=== PATIENT | male | born 1965 | race Caucasian/White ===

== ENCOUNTER → 2016-10-28 | Outpatient (REF) | payer OTHER ==
[~2016-10-28] MED LIST: /CELE20CA OR; /ESOM40CA OR; /PANT40TA OR; ACET50TAOT PO; ASPI1TAB PO; GABA-282 PO; LISI10TA4 OR; LISI10TA4 PO; LISI40TAB PO; METF-699 PO; MULT1CHW26 PO; MULTIVIT OR; NAPR1TAB41 PO; NEXI40CA PO; NORC1TAB4 PO; PERCOCET PO; PRAV40TA2 PO; SENN8.6T7 PO; TYLE325T5 PO; TYLE500T78 PO; VITA1CAP7 PO; VITA500046 PO; VITAMIN D OR; VITMTA PO; XANA0.25 PO; XANA0.5T PO; ZOCO20TA PO; ZOFR4TAB3 PO
[2016-10-29 12:14] LABS: MEAN CORPUSCULAR HEMOGLOBIN 31.6 pg (27.0-33.0); MEAN CORPUSCULAR HGB CONC 35.1 g/dl (32.0-36.5); MEAN CORPUSCULAR VOLUME 89.8 fl (80.0-96.0); RED CELL DISTRIBUTION WIDTH 12.6 % (11.5-14.5); WHITE BLOOD COUNT 5.1 K/mm3 (4.0-10.0)
[2016-10-29 12:17] LABS: ALBUMIN 3.6 GM/DL (3.2-5.2); ALBUMIN/GLOBULIN RATIO 1.29 (1.00-1.93); ALKALINE PHOSPHATASE 30 U/L (45-117); ALT/SGPT 40 U/L (12-78); ANION GAP 8 MEQ/L (8-16); AST/SGOT 18 U/L (15-37); BILIRUBIN,TOTAL 0.5 MG/DL (0.2-1.0); BLOOD UREA NITROGEN 13 MG/DL (7-18); CALCIUM LEVEL 8.6 MG/DL (8.5-10.1); CARBON DIOXIDE LEVEL 26 MEQ/L (21-32); CHLORIDE LEVEL 110 MEQ/L (98-107); CHOLESTEROL LEVEL 128 MG/DL (<200); CREATININE FOR GFR 0.61 MG/DL (0.70-1.30); GLOMERULAR FILTRATION RATE > 60.0 (>56); GLUCOSE, FASTING 92 MG/DL (70-105); POTASSIUM SERUM 4.1 MEQ/L (3.5-5.1); SODIUM LEVEL 144 MEQ/L (136-145); TOTAL PROTEIN 6.4 GM/DL (6.4-8.2); TRIGLYCERIDES LEVEL 138 MG/DL (<150)
[2016-10-29 13:05] LABS: BASOPHILS 2 % (0-4); EOSINOPHILS 5 % (0-5)
== END ==
LOC: M SFHCLERA 17:03
PROVIDERS: ATTEND Family Medicine
DX: I10 Essential (primary) hypertension (principal)

== ENCOUNTER → 2017-11-11 | Outpatient (CLI) | payer OTHER | LOC: M LRY 15:46 | DX: M17.0 Bilateral primary osteoarthritis of knee (principal); M19.041 Primary osteoarthritis, right hand; M19.242 Secondary osteoarthritis, left hand | CPT/HCPCS: 73130; 90471 ==

== ENCOUNTER → 2017-11-27 | Outpatient (REF) | payer OTHER ==
[2017-11-27 11:54] LABS: BASO % 0.8 % (0.0-1.0); EOS # 0.2 10^3/uL (0.0-0.50); HEMATOCRIT 46.1 % (42.0-52.0); IMMATURE GRANULOCYTE % 0.2 % (0-3.0); LYMPH # 1.6 10^3/uL (1.5-4.5); LYMPH % 32.4 % (24.0-44.0); MEAN CORPUSCULAR HEMOGLOBIN 31.3 pg (27.0-33.0); MEAN CORPUSCULAR HGB CONC 34.7 g/dl (32.0-36.5); MEAN CORPUSCULAR VOLUME 90.2 fl (80.0-96.0); MONO # 0.4 10^3/uL (0.0-0.8); MONO % 7.2 % (0.0-5.0); NEUTROPHILS # 2.8 10^3/uL (1.8-7.7); NEUTROPHILS % 56.4 % (36.0-66.0); PLATELET COUNT, AUTOMATED 166 10^3/uL (150-450); RED BLOOD COUNT 5.11 10^6/uL (4.30-6.10); RED CELL DISTRIBUTION WIDTH 12.1 % (11.5-14.5)
[2017-11-27 12:12] LABS: ESTIMATED AVERAGE GLUCOSE 117 MG/DL (60-110); HEMOGLOBIN A1c 5.7 %
[2017-11-27 12:27] LABS: ALBUMIN 3.5 GM/DL (3.2-5.2); ALBUMIN/GLOBULIN RATIO 1.25 (1.00-1.93); ALKALINE PHOSPHATASE 23 U/L (45-117); ALT/SGPT 89 U/L (12-78); ANION GAP 11 MEQ/L (8-16); AST/SGOT 42 U/L (7-37); BILIRUBIN,TOTAL 0.8 MG/DL (0.2-1.0); BLOOD UREA NITROGEN 15 MG/DL (7-18); CALCIUM LEVEL 7.9 MG/DL (8.5-10.1); CARBON DIOXIDE LEVEL 25 MEQ/L (21-32); CHLORIDE LEVEL 105 MEQ/L (98-107); CHOLESTEROL LEVEL 122 MG/DL (<200); CHOLESTEROL RISK RATIO 3.696 (<5); CREATININE FOR GFR 0.62 MG/DL (0.70-1.30); GLOMERULAR FILTRATION RATE > 60.0 (>56); GLUCOSE, FASTING 101 MG/DL (70-100); HDL CHOLESTEROL 33 MG/DL (>40); LDL CHOLESTEROL 64 MG/DL (<100); NON-HDL-C 89 MG/DL; POTASSIUM SERUM 4.4 MEQ/L (3.5-5.1); SODIUM LEVEL 141 MEQ/L (136-145); TOTAL PROTEIN 6.3 GM/DL (6.4-8.2); TRIGLYCERIDES LEVEL 124 MG/DL (<150)
[2017-11-27 12:31] LABS: CREATININE, URINE 93.3 MG/DL; MALB URINE SIEMENS < 5.0 MG/L
[2017-11-27 12:38] LABS: MAU/CREAT RATIO 5.4 MCG/MG (0.0-30.0)
== END ==
LOC: M SFHCLERA 08:04
DX: R52 Pain, unspecified (principal); I10 Essential (primary) hypertension
CPT/HCPCS: 80053

== ENCOUNTER → 2018-01-07 | Outpatient (CLI) | payer OTHER | LOC: M SLEEP 19:30 | DX: G47.33 Obstructive sleep apnea (adult) (pediatric) (principal) | CPT/HCPCS: 95810 ==

== ENCOUNTER → 2018-03-05 | Outpatient (REF) | payer OTHER ==
[~2018-03-05] MED LIST changes: +ACET500T15 PO; -ACET50TAOT PO; -GABA-282 PO; +GABA-843 PO; +LISI40TA PO; +ZOFR4TAB14 PO; -ZOFR4TAB3 PO
[2018-03-05 12:44] LABS: ALBUMIN 3.6 GM/DL (3.2-5.2); ALT/SGPT 177 U/L (12-78); BILIRUBIN,TOTAL 0.9 MG/DL (0.2-1.0); BLOOD UREA NITROGEN 18 MG/DL (7-18); CALCIUM LEVEL 8.1 MG/DL (8.5-10.1); CARBON DIOXIDE LEVEL 28 MEQ/L (21-32); CHLORIDE LEVEL 106 MEQ/L (98-107); CREATININE FOR GFR 0.65 MG/DL (0.70-1.30); FERRITIN 212 NG/ML (26-388); GLOMERULAR FILTRATION RATE > 60.0 (>56); GLUCOSE, FASTING 135 MG/DL (70-100); POTASSIUM SERUM 4.2 MEQ/L (3.5-5.1); SODIUM LEVEL 140 MEQ/L (136-145); TOTAL PROTEIN 6.6 GM/DL (6.4-8.2)
[2018-03-05 12:52] LABS: TESTOSTERONE 170 NG/DL (241-827)
[2018-03-05 13:03] LABS: HEPATITIS B SURFACE ANTIGEN NEGATIVE (NEGATIVE)
[2018-03-05 13:30] LABS: HEPATITIS C VIRUS ABY INDEX 0.1 INDEX (<0.8)
[2018-03-05 13:31] LABS: HEPATITIS B CORE ANTIBODY IGM NEGATIVE (NEGATIVE)
[2018-03-05 13:33] LABS: HEPATITIS A ANTIBODY IGM NEGATIVE (NEGATIVE)
== END ==
LOC: M SFHCLERA 08:30
PROVIDERS: ATTEND Family Medicine
DX: R94.5 Abnormal results of liver function studies (principal); N52.9 Male erectile dysfunction, unspecified

== ENCOUNTER → 2018-03-16 | Outpatient (REF) | payer OTHER ==
[2018-03-16 12:16] LABS: ALBUMIN 3.6 GM/DL (3.2-5.2); ALT/SGPT 106 U/L (12-78); BILIRUBIN,TOTAL 0.7 MG/DL (0.2-1.0); BLOOD UREA NITROGEN 17 MG/DL (7-18); CALCIUM LEVEL 8.3 MG/DL (8.5-10.1); CARBON DIOXIDE LEVEL 26 MEQ/L (21-32); CHLORIDE LEVEL 106 MEQ/L (98-107); CREATININE FOR GFR 0.63 MG/DL (0.70-1.30); FERRITIN 127 NG/ML (26-388); GLOMERULAR FILTRATION RATE > 60.0 (>56); GLUCOSE, FASTING 127 MG/DL (70-100); LUTEINIZING HORMONE 3.8 mIU/mL (1.5-9.3); POTASSIUM SERUM 4.1 MEQ/L (3.5-5.1); SODIUM LEVEL 139 MEQ/L (136-145); TESTOSTERONE 243 NG/DL (241-827); TOTAL PROTEIN 6.2 GM/DL (6.4-8.2)
[2018-03-17 09:51] LABS: HEPATITIS B SURFACE ANTIGEN NEGATIVE (NEGATIVE)
[2018-03-17 10:18] LABS: HEPATITIS B CORE ANTIBODY IGM NEGATIVE (NEGATIVE); HEPATITIS C VIRUS ABY INDEX 0.1 INDEX (<0.8)
[2018-03-17 10:20] LABS: HEPATITIS A ANTIBODY IGM NEGATIVE (NEGATIVE)
== END ==
LOC: M SFHCLERA 08:00
PROVIDERS: ATTEND Family Medicine
DX: R94.5 Abnormal results of liver function studies (principal); R79.89 Other specified abnormal findings of blood chemistry; N52.9 Male erectile dysfunction, unspecified

== ENCOUNTER → 2018-03-19 | Outpatient (CLI) | payer OTHER ==
--- NOTE | 2018-03-19 10:17 | REP ---
RIGHT UPPER QUADRANT ULTRASOUND: Real-time sonographic evaluation of the right upper quadrant performed. The study is limited due to patient body habitus. Gallbladder demonstrates no gross stone. No obvious wall thickening. No free fluid is seen. There is no evidence of intrahepatic or extrahepatic biliary dilatation, common bile duct measuring 4 mm in diameter. Liver demonstrates diffuse heterogeneous increased echotexture compatible with diffuse fibrofatty infiltration. No gross underlying mass is seen. Pancreas is not well seen due to body habitus and overlying bowel gas. Right kidney demonstrates no hydronephrosis with normal size 13.9 cm in length. There is no gross ascites. IMPRESSION: Markedly limited exam. No definite gallstones or biliary dilatation. Diffuse fibrofatty infiltration of the liver. Electronically Signed by Froy Tobar MD 03/19/2018 01:41 P
== END ==
LOC: M LRY 08:13
PROVIDERS: ATTEND Family Medicine
DX: R94.5 Abnormal results of liver function studies (principal)

== ENCOUNTER → 2018-03-23 | Outpatient (REF) | payer OTHER | LOC: M SFHCLERA 08:00 | PROVIDERS: ATTEND Family Medicine | DX: N52.9 Male erectile dysfunction, unspecified (principal) ==

== ENCOUNTER → 2018-04-01 | Outpatient (CLI) | payer OTHER ==
--- NOTE | 2018-04-05 18:19 | SLEEPCENT ---
DATE OF PROCEDURE: 04/01/2018 ORDERED BY: Komal Castanon Nocturnal polysomnography was performed for the titration of pressure therapy in this patient with obstructive sleep apnea syndrome, apnea-hypopnea index 50.1. For testing, a [employer] Simplus full face mask of medium size was used, 5 cm of water pressure were applied to the circuit and the lights were extinguished. 8 hours and 23 minutes of data were reviewed. There were 380 minutes of sleep identified. Sleep latency was short at 6 minutes. Rapid eye movement (REM) latency was short at 29 minutes. Sleep architecture was good with 6 REM cycles and REM rebound noted. Overall sleep efficiency was 84%. The electrocardiogram showed a sinus rhythm with an average heart rate of 58 beats per minute. EEG showed reasonably normal waveforms for awake and sleep. Respiratory events were well palliated with continuous positive airway pressure (CPAP) at a pressure of +12. There was scattered limb activity and occasional snoring. Remaining measures of sleep physiology were normal. IMPRESSION: Obstructive sleep apnea syndrome (G47.33) RECOMMENDATIONS: Nightly use of pressure therapy 12 cm of water.
== END ==
LOC: M SLEEP 19:44
PROVIDERS: ATTEND Nurse Practitioner Family
DX: G47.33 Obstructive sleep apnea (adult) (pediatric) (principal)

== ENCOUNTER → 2018-04-15 | Outpatient (CLI) | payer OTHER ==
[~2018-04-15] MED LIST changes: +GASTROGRAFIN SOLUTION 30ML (Q9963) As Ordered ONE; +ISOVUE-370 76% 100ML VIAL (Q9967) As Ordered ONE
--- NOTE | 2018-04-15 20:40 | REP ---
Clinical: Lower abdominal pain. Technique: Axial contrast enhanced images from the lung bases to the pubic symphysis using oral (per protocol) and 100 ml Isovue 370 intravenous contrast material with delayed images of the abdomen as well as coronal and sagittal re-formations. Comparison: 01/01/2016. Findings: Lung bases demonstrate mild chronic-appearing fiber atelectatic change. Visualized portions of the heart and pericardium appear normal. Diffuse fatty infiltration to the liver noted without focal hepatic lesion. Spleen, pancreas, gallbladder, bilateral adrenal glands and kidneys are normal. Midline ventral hernia below the level of the previous mesh repair which contains multiple loops of small bowel without definite evidence for obstruction. Normal terminal ileum and appendix are identified in the right lower quadrant. Pelvis demonstrates posterior midline bladder calcifications which appears to extend into the proximal prostatic urethra. (Images 154-164). No ascites. No free air. No significant adenopathy. Abdominal aorta and vasculature without aneurysm or dissection. Osseous structures demonstrate age-related changes and evidence for sacroiliitis. Impression: 1. Ventral supraumbilical hernia midline apparently below the level of prior mesh repair containing small bowel without definite obstruction. 2. Calcifications in the posterior midline bladder which appear to extend into the proximal prostatic urethra and may warrant correlation. 3. No further acute abdominopelvic pathology appreciated. Electronically Signed by Lisandro Dyer MD 04/15/2018 08:32 P
== END ==
LOC: M RAD 15:05
PROVIDERS: ATTEND Nurse Practitioner Family
DX: R10.30 Lower abdominal pain, unspecified (principal); K43.9 Ventral hernia without obstruction or gangrene; K76.0 Fatty (change of) liver, not elsewhere classified; N21.0 Calculus in bladder
CPT/HCPCS: 74177; Q9963; Q9967

== ENCOUNTER 2018-05-25 13:20 | Emergency (ER) | payer OTHER ==
[~2018-05-25] VITALS: Ht 198.1 cm; Wt 199.1 kg
[~2018-05-25 13:20] MED LIST changes: -/CELE20CA OR; -/ESOM40CA OR; -/PANT40TA OR; -ASPI1TAB PO; +ASPI81TA26 PO; +CELE1CAP4 OR; +D-3-50003 PO; -GASTROGRAFIN SOLUTION 30ML (Q9963) As Ordered ONE; -ISOVUE-370 76% 100ML VIAL (Q9967) As Ordered ONE; +LISI40TA52 PO; -LISI40TAB PO; +NEXI1CAP3 OR; -NORC1TAB4 PO; +NORC1TAB7 PO; +OXYC1TAB23 PO; -PERCOCET PO; +PROT1TAB2 OR; +SENN1TAB41 PO; -SENN8.6T7 PO; -VITA1CAP7 PO
[2018-05-25 13:57] LABS: BASO % 0.6 % (0.0-1.0); EOS # 0.1 10^3/uL (0.0-0.50); EOS % 2.1 % (0.0-3.0); HEMATOCRIT 42.5 % (42.0-52.0); LYMPH # 1.6 10^3/uL (1.5-4.5); LYMPH % 29.3 % (24.0-44.0); MEAN CORPUSCULAR HEMOGLOBIN 31.4 pg (27.0-33.0); MEAN CORPUSCULAR HGB CONC 35.3 g/dl (32.0-36.5); MEAN CORPUSCULAR VOLUME 89.1 fl (80.0-96.0); MONO # 0.4 10^3/uL (0.0-0.8); MONO % 7.1 % (0.0-5.0); NEUTROPHILS # 3.2 10^3/uL (1.8-7.7); NEUTROPHILS % 60.5 % (36.0-66.0); PLATELET COUNT, AUTOMATED 151 10^3/uL (150-450); RED BLOOD COUNT 4.77 10^6/uL (4.30-6.10); WHITE BLOOD COUNT 5.3 10^3/uL (4.0-10.0)
[2018-05-25] MEDS ORDERED: NITROGLYCERIN 0.4 MG SUBL TABLET SL PRN (14:00)
[2018-05-25 14:17] LABS: INR 0.95; PROTHROMBIN TIME 12.8 SECONDS (12.1-14.4)
[2018-05-25 14:18] LABS: PARTIAL THROMBOPLASTIN TIME 29.7 SECONDS (25.4-37.6)
--- NOTE | 2018-05-25 14:33 | REP ---
PA and lateral chest: Comparisons are the PA and lateral chest dated 04/16/2015 and portable chest dated 04/19/2015. There is chronic cardiomegaly, unchanged. On the lateral view there is discoid atelectasis versus parenchymal scarring anteriorly, not present on the comparison lateral view. Lung motley otherwise clear. The sunitha, mediastinum, skeletal structures are otherwise unremarkable. Impression: Chronic cardiomegaly. Anterior discoid atelectasis versus parenchymal scarring on the lateral view. Electronically Signed by Froy Mckeon MD 05/25/2018 02:25 P
[2018-05-25 14:35] LABS: ALBUMIN 3.6 GM/DL (3.2-5.2); ALT/SGPT 116 U/L (12-78); BILIRUBIN,DIRECT 0.1 MG/DL (0.0-0.2); BILIRUBIN,TOTAL 0.4 MG/DL (0.2-1.0); BLOOD UREA NITROGEN 14 MG/DL (7-18); CALCIUM LEVEL 8.2 MG/DL (8.5-10.1); CARBON DIOXIDE LEVEL 25 MEQ/L (21-32); CHLORIDE LEVEL 109 MEQ/L (98-107); CPK CREATINE PHOSPHOKINASE 322 U/L (39-308); CREATININE FOR GFR 0.64 MG/DL (0.70-1.30); FREE T4 1.21 NG/DL (0.76-1.46); GLOMERULAR FILTRATION RATE > 60.0 (>56); GLUCOSE, FASTING 125 MG/DL (70-100); LIPASE 92 U/L (73-393); MB/CK RELATIVE INDEX 0.87 (< OR =4); POTASSIUM SERUM 4.4 MEQ/L (3.5-5.1); SODIUM LEVEL 140 MEQ/L (136-145); TOTAL PROTEIN 6.2 GM/DL (6.4-8.2); TROPONIN I < 0.02 NG/ML (< 0.10)
[2018-05-25 14:38] VITALS: BP 137/68
[2018-05-25] MEDS ORDERED: ISOVUE-370 76% 100ML VIAL (Q9967) As Ordered ONE (15:23)
--- NOTE | 2018-05-25 16:08 | REP ---
CT of the chest with IV contrast, CT pulmonary angiography protocol: Comparison is the PA and lateral plain film study performed earlier today. There are no emboli in the pulmonary trunk or central pulmonary arteries. There are no emboli in the pulmonary lobe or segment branches. There is a small focal zone of atelectasis versus scarring in the anterior segment right upper lobe inferomedially anterior to the heart. Lung motley otherwise clear. The thoracic aorta is unremarkable. Cardiac size is upper normal. There is no pericardial effusion. The visualized upper abdomen is unremarkable. Impression: There are no pulmonary emboli. There is a focal infiltrate versus parenchymal scarring anteriorly inferiorly in the anterior segment of the right upper lobe spanning images 41 - 46. Cardiac size is upper normal. Otherwise, negative CT study of the chest. No Electronically Signed by Froy Mckeon MD 05/25/2018 03:58 P
[2018-05-25] MEDS ORDERED: AZITHROMYCIN 250 MG TAB PO ONE (16:15)
[2018-05-25] MEDS ORDERED: AZIT-12 PO (16:16)
[2018-05-25 20:43] LABS: CPK CREATINE PHOSPHOKINASE 266 U/L (39-308); TROPONIN I < 0.02 NG/ML (< 0.10)
[2018-05-25 20:57] VITALS: BP 148/70
--- NOTE | 2018-05-25 21:39 | ECGEPIP ---
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
--- NOTE | 2018-05-25 21:46 | ECGEPIP ---
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
== END 2018-05-25 20:59 | disposition home or self-care (01) ==
LOC: M ED 13:20
DX: J18.9 Pneumonia, unspecified organism (principal); I10 Essential (primary) hypertension; E78.5 Hyperlipidemia, unspecified; E55.9 Vitamin D deficiency, unspecified; R73.03 Prediabetes; Z87.891 Personal history of nicotine dependence; Z82.49 Family history of ischemic heart disease and other diseases of the circulatory system; Z79.899 Other long term (current) drug therapy; Z79.82 Long term (current) use of aspirin; Z79.84 Long term (current) use of oral hypoglycemic drugs
CPT/HCPCS: 71046; 71275; 80048; 80076; 82550; 82553; 83690; 84439; 84443; 84484; 85025; 85610; 85730; 93005; 93041; 94760; 99285; G0463; Q9967

== ENCOUNTER → 2018-06-11 | Outpatient (REF) | payer OTHER ==
[~2018-06-11] MED LIST changes: +AZIT-12 PO
== END ==
LOC: M SFHCPLAZ 16:51
PROVIDERS: ATTEND Dermatology
DX: L57.0 Actinic keratosis (principal); D22.5 Melanocytic nevi of trunk

== ENCOUNTER → 2018-06-29 | Outpatient (REF) | payer OTHER | LOC: M SFHCPLAZ 09:59 | PROVIDERS: ATTEND Dermatology | DX: D22.5 Melanocytic nevi of trunk (principal) ==

== ENCOUNTER → 2018-06-30 | Outpatient (REF) | payer OTHER ==
[2018-06-30 21:53] LABS: HEMOGLOBIN A1c 6.7 %
== END ==
LOC: M SFHCLERA 15:36
PROVIDERS: ATTEND Family Medicine
DX: R73.9 Hyperglycemia, unspecified (principal)

== ENCOUNTER → 2018-07-02 | Outpatient (REF) | payer OTHER ==
[2018-07-02 21:22] LABS: HEMOGLOBIN A1c 6.7 %
== END ==
LOC: M SFHCLERA 15:39
PROVIDERS: ATTEND Family Medicine
DX: R73.09 Other abnormal glucose (principal)

== ENCOUNTER → 2018-09-02 | Outpatient (REF) | payer OTHER ==
[2018-09-02 20:22] LABS: ALBUMIN 3.8 GM/DL (3.2-5.2); BILIRUBIN,DIRECT 0.2 MG/DL (0.0-0.2); BILIRUBIN,TOTAL 0.8 MG/DL (0.2-1.0); TOTAL PROTEIN 7.2 GM/DL (6.4-8.2)
== END ==
LOC: M SFHCLERA 17:12
PROVIDERS: ATTEND Family Medicine
DX: R94.5 Abnormal results of liver function studies (principal)
CPT/HCPCS: 80076; G0463

== ENCOUNTER 2018-10-10 16:53 | Emergency (ER) | payer OTHER ==
[~2018-10-10] VITALS: Ht 198.1 cm; Wt 184.6 kg
[2018-10-10] MEDS ORDERED: LIDOCAINE 2% W/EPIN INJ 20ML **PRES FREE As Ordered ONE (17:00)
[2018-10-10 17:02] VITALS: BP 146/72
[2018-10-10] MEDS ORDERED: ADACEL/BOOSTRIX VACCINE (DIPHTH/PERTUSS/ACELL/TETANUS)0.5ML SYR (90715) IM ONE (17:15)
[2018-10-10] MEDS ORDERED: LIDOCAINE 2% W/EPIN INJ 20ML **PRES FREE INJ ONE (19:00)
== END 2018-10-10 17:41 | disposition home or self-care (01) ==
LOC: M ED 16:53
DX: S81.812A Laceration without foreign body, left lower leg, initial encounter (principal); W22.8XXA Striking against or struck by other objects, initial encounter; Y92.018 Other place in single-family (private) house as the place of occurrence of the external cause; I10 Essential (primary) hypertension; F33.9 Major depressive disorder, recurrent, unspecified; F41.9 Anxiety disorder, unspecified; E78.9 Disorder of lipoprotein metabolism, unspecified; G47.30 Sleep apnea, unspecified; Z79.899 Other long term (current) drug therapy; Z79.84 Long term (current) use of oral hypoglycemic drugs; Z79.82 Long term (current) use of aspirin

== ENCOUNTER → 2018-10-20 | Outpatient (REF) | payer OTHER ==
[2018-10-20 12:03] LABS: CHOLESTEROL RISK RATIO 3.473 (<5)
== END ==
LOC: M SFHCLERA 09:17
PROVIDERS: ATTEND Family Medicine
DX: E78.5 Hyperlipidemia, unspecified (principal)

== ENCOUNTER → 2018-10-27 | Outpatient (CLI) | payer OTHER ==
--- NOTE | 2018-10-27 19:18 | REPVR ---
PROCEDURE INFORMATION: Exam: MR Cervical Spine Without Contrast Exam date and time: 10/27/2018 6:32 PM Clinical history: 52 years old, male; Cervicalgia; Patient HX: Neck pain stiffness; Additional info: Cervical spine stenosis TECHNIQUE: Imaging protocol: Multiplanar magnetic resonance images of the cervical spine without contrast. COMPARISON: No relevant prior studies available. FINDINGS: Vertebrae: Unremarkable. Spinal cord: Normal signal. No cord compression. C2-C3: No significant disc disease. No significant spinal stenosis. C3-C4: Minimal annular bulge at C3-C4 effaces the ventral subarachnoid space without cord impingement. There is mild bilateral foraminal narrowing. C4-C5: Minimal bulging annulus at C4-C5 effaces the ventral subarachnoid space without cord impingement. Mild to moderate bilateral foraminal narrowing. C5-C6: Broad posterior disc protrusion at C5-C6 effaces the ventral subarachnoid space without cord impingement. There is severe foraminal stenosis on the right and moderate foraminal stenosis on the left. C6-C7: Broad posterior disc protrusion at C6-C7 effaces the ventral subarachnoid space with mild cord impingement. There is severe bilateral foraminal stenosis. C7-T1: No significant disc disease. No significant spinal stenosis. Vertebral arteries: Expected flow voids in the vertebral arteries. Soft tissues: Degenerative changes at the atlantoaxial joint with soft tissue thickening. IMPRESSION: Degenerative spondylosis from C3-4 to C6-C7 most pronounced at C6-C7. Electronically signed by: Pancho Hernández On 10/27/2018 19:17:52 PM
== END ==
LOC: M RAD 17:40
PROVIDERS: ATTEND Family Medicine
DX: M48.02 Spinal stenosis, cervical region (principal); M50.21 Other cervical disc displacement, high cervical region; M50.221 Other cervical disc displacement at C4-C5 level; M50.222 Other cervical disc displacement at C5-C6 level; M50.223 Other cervical disc displacement at C6-C7 level

== ENCOUNTER → 2018-12-31 | Outpatient (CLI) | payer OTHER ==
--- NOTE | 2019-01-01 07:08 | REP ---
HISTORY: History of TIA. COMPARISON: None. There is mild echogenic material seen along the carotid arterial velasquez. Right Left CCA systolic 186.1 cm/s 111.1 cm/s CCA diastolic 30.8 cm/s 22.2 cm/s ICA systolic 68.0 cm/s 105.9 cm/s ICA diastolic 20.8 cm/s 33.3 cm/s ICA/CCA ratio 0.37 0.95 Analysis of the spectral waveform shows antegrade flow in both vertebral arteries. There is no evidence of significant spectral broadening. IMPRESSION: According to the NASCET consensus criteria, there is less than 50% stenosis of the internal carotid artery bilaterally. Electronically Signed by Jonathan Del Castillo DO 01/01/2019 09:20 A
== END ==
LOC: M RAD 16:13
PROVIDERS: ATTEND Psychiatry & Neurology Neurology
DX: Z86.73 Personal history of transient ischemic attack (TIA), and cerebral infarction without residual deficits (principal)

== ENCOUNTER → 2019-05-25 | Outpatient (CLI) | payer OTHER ==
--- NOTE | 2019-05-25 08:10 | REP ---
Clinical: Abdominal pain. Technique: Tobar scale ultrasound using curved array transducer. Findings: The liver is echogenic with poor through transmission suggesting fatty infiltration. No obvious focal hepatic lesion identified. The pancreas is incompletely evaluated. The gallbladder is normal without gallstones, wall thickening or pericholecystic fluid. No biliary ductal dilatation is appreciated, and the common bile duct measures 4.2 mm diameter. The right kidney is normal in reniform shape without hydronephrosis and measures 15.2 x 7.2 x 6.0 cm. No ascites. Visualized portions of the abdominal aorta normal. Impression: Fatty liver. Electronically Signed by Lisandro Dyer MD 05/25/2019 08:02 A
== END ==
LOC: M RAD 07:01
PROVIDERS: ATTEND Family Medicine
DX: R07.9 Chest pain, unspecified (principal); K76.0 Fatty (change of) liver, not elsewhere classified

== ENCOUNTER → 2019-10-10 | Outpatient (REF) | payer OTHER ==
[~2019-10-10] MED LIST changes: -METF-699 PO; +METF-817 PO
[2019-10-11 16:25] LABS: BASO % 0.4 % (0.0-1.0); EOS # 0.1 10^3/uL (0.0-0.5); EOS % 2.6 % (0.0-3.0); HEMATOCRIT 44.6 % (42.0-52.0); HEMOGLOBIN 15.3 g/dl (13.5-17.5); LYMPH # 1.6 10^3/uL (1.5-5.0); LYMPH % 33.8 % (24.0-44.0); MEAN CORPUSCULAR HEMOGLOBIN 31.2 pg (27.0-33.0); MEAN CORPUSCULAR HGB CONC 34.3 g/dl (32.0-36.5); MEAN CORPUSCULAR VOLUME 90.8 fl (80.0-96.0); MONO # 0.3 10^3/uL (0.0-0.8); NEUTROPHILS # 2.7 10^3/uL (1.5-8.5); PLATELET COUNT, AUTOMATED 148 10^3/uL (150-450); RED BLOOD COUNT 4.91 10^6/uL (4.30-6.10); WHITE BLOOD COUNT 4.7 10^3/uL (4.0-10.0)
[2019-10-11 16:42] LABS: HEMOGLOBIN A1c 6.2 %
== END ==
LOC: M SFHCLERA 14:05
PROVIDERS: ATTEND Family Medicine
DX: K76.0 Fatty (change of) liver, not elsewhere classified (principal); E11.9 Type 2 diabetes mellitus without complications

== ENCOUNTER → 2019-10-12 | Outpatient (REF) | payer OTHER ==
[2019-10-13 18:52] LABS: ALBUMIN 3.8 GM/DL (3.2-5.2); ALT/SGPT 174 U/L (12-78); BILIRUBIN,TOTAL 0.7 MG/DL (0.2-1.0); BLOOD UREA NITROGEN 17 MG/DL (7-18); CALCIUM LEVEL 8.9 MG/DL (8.5-10.1); CARBON DIOXIDE LEVEL 27 MEQ/L (21-32); CHLORIDE LEVEL 104 MEQ/L (98-107); CHOLESTEROL LEVEL 143 MG/DL (<200); CHOLESTEROL RISK RATIO 4.766 (<5); CREATININE FOR GFR 0.82 MG/DL (0.70-1.30); GLOMERULAR FILTRATION RATE > 60.0 (>56); GLUCOSE, FASTING 117 MG/DL (70-100); HDL CHOLESTEROL 30 MG/DL (>40); LDL CHOLESTEROL 60 MG/DL (<100); NON-HDL-C 113 MG/DL; POTASSIUM SERUM 4.1 MEQ/L (3.5-5.1); SODIUM LEVEL 138 MEQ/L (136-145); TOTAL PROTEIN 7.1 GM/DL (6.4-8.2); TRIGLYCERIDES LEVEL 265 MG/DL (<150)
== END ==
LOC: M SFHCLERA 15:50
PROVIDERS: ATTEND Family Medicine
DX: K76.0 Fatty (change of) liver, not elsewhere classified (principal)

== ENCOUNTER 2020-04-15 12:13 | Inpatient (IN) | payer OTHER ==
[~2020-04-15] VITALS: Ht 198.1 cm; Wt 194.3 kg
[~2020-04-15 12:13] MED LIST changes: +GABA-282 PO; -GABA-843 PO; +LISI10TA22 PO; -LISI10TA4 PO; -LISI40TA PO; +LISI40TA4 PO
[2020-04-15 13:04] LABS: BASO % 0.3 % (0.0-1.0); EOS % 0.4 % (0.0-3.0); HEMATOCRIT 48.6 % (42.0-52.0); HEMOGLOBIN 16.2 g/dl (13.5-17.5); LYMPH # 1.2 10^3/uL (1.5-5.0); LYMPH % 13.4 % (24.0-44.0); MEAN CORPUSCULAR HGB CONC 33.3 g/dl (32.0-36.5); MONO # 0.5 10^3/uL (0.0-0.8); NEUTROPHILS # 7.1 10^3/uL (1.5-8.5); NEUTROPHILS % 79.3 % (36.0-66.0); PLATELET COUNT, AUTOMATED 179 10^3/uL (150-450); WHITE BLOOD COUNT 8.9 10^3/uL (4.0-10.0)
[2020-04-15] MEDS ORDERED: ASPI81TA33 (13:10)
[2020-04-15] MEDS ORDERED: SIMV20TA22 PO (13:10)
[2020-04-15] MEDS ORDERED: VALS1TAB67 PO (13:10)
[2020-04-15] MEDS ORDERED: AMLO1TAB24 PO (13:10)
[2020-04-15] MEDS ORDERED: PERI12LIQ SSP (13:10)
[2020-04-15 13:14] LABS: INR 0.93; PROTHROMBIN TIME 12.7 SECONDS (12.5-14.3)
[2020-04-15 13:15] LABS: PARTIAL THROMBOPLASTIN TIME 34.5 SECONDS (24.2-38.5)
[2020-04-15 13:30] LABS: ALT/SGPT 102 U/L (12-78); BILIRUBIN,DIRECT 0.4 MG/DL (0.0-0.2); BILIRUBIN,TOTAL 1.3 MG/DL (0.2-1.0); CPK CREATINE PHOSPHOKINASE 186 U/L (39-308); LIPASE 57 U/L (73-393); MB/CK RELATIVE INDEX 1.08 (< OR =4); TOTAL PROTEIN 7.2 GM/DL (6.4-8.2); TROPONIN I < 0.02 NG/ML (< 0.10)
--- NOTE | 2020-04-15 13:58 | REP ---
INDICATION: frequent obstructions, decresed bowel sounds luq llq COMPARISON: None. TECHNIQUE: Upright view of the chest with supine and upright views of the abdomen and pelvis. FINDINGS: Frontal upright view of the chest cannot exclude basilar atelectasis. Supine upright views of the abdomen and pelvis demonstrate dilated air-filled loops of small and large bowel. Differential diagnosis includes ileus, enterocolitis as well as partial/early small bowel obstruction. IMPRESSION: Findings are nonspecific. Differential diagnosis includes ileus, enterocolitis and early/partial small bowel obstruction. <Electronically signed by Lisandro Dyer > 04/15/20 [id number]
[2020-04-15] MEDS ORDERED: ISOVUE-370 76% 100ML VIAL As Ordered ONE (14:06)
--- NOTE | 2020-04-15 14:31 | REP ---
INDICATION: large firm area RLQ, decreased bowel sounds Left side. COMPARISON: 04/15/2018 TECHNIQUE: Axial contrast-enhanced images from the lung bases to the pubic symphysis using 100 cc Isovue 370 intravenous contrast material. Coronal and sagittal reformations obtained. This CT examination was performed using the following dose reduction techniques: Automated exposure control, adjustment of mA and/or kv according to the patient's size, and the use of iterative reconstruction technique. FINDINGS: A moderate-sized midline supraumbilical ventral hernias identified containing dilated and collapsed small bowel with surrounding mesenteric fat stranding and findings are most consistent with small bowel obstruction due to hernia. A smaller fat containing periumbilical hernia is also identified without acute changes. No free air to suggest bowel perforation and no ascites or drainable collection/abscess. The colon is relatively normal. Normal terminal ileum, cecum and appendix identified in the right lower quadrant. Liver, spleen, pancreas, gallbladder, bilateral adrenal glands and kidneys are normal. Incidental 1 cm right renal hypodensity likely representing cyst noted. Pelvis demonstrates normal bladder with mildly prominent heterogeneous prostate gland. Abdominal aorta without aneurysm or dissection. Osseous structures demonstrate degenerative changes. Lung bases are clear. IMPRESSION: 1. Small-bowel obstruction appears to be secondary to supraumbilical ventral hernia which contains dilated and efferent collapsed small bowel as well as surrounding mesenteric fat stranding. No evidence for bowel perforation. No ascites or drainable collection. 2. 1 cm right renal hypodensity likely representing complex cyst and unchanged from prior examination. <Electronically signed by Lisandro Dyer > 04/15/20 [id number]
[2020-04-15] MEDS ORDERED: NS 1,000 ML IV ONE (15:05)
[2020-04-15] MEDS ORDERED: ESOM0.1C PO (15:12)
[2020-04-15] MEDS ORDERED: NATU1TAB5 PO (15:12)
[2020-04-15] MEDS ORDERED: GABA-845 PO (15:12)
[2020-04-15 15:23] LABS: RSV AMPLIFICATION NEGATIVE (NEGATIVE)
[2020-04-15] MEDS ORDERED: ALPRAZolam 0.5 MG TAB PO PRN (15:50)
--- NOTE | 2020-04-15 16:07 | HPEPDOC ---
[facility] Medical History & Physical Date of Admission Apr 15, 2020 Date of Service: Apr 15, 2020 History and Physical CHIEF COMPLAINT: ABDOMINAL PAIN HISTORY OF PRESENT ILLNESS: 54 yo male for several day history of worsening d iffuse abdominal pain, without nausea/vomiting. History of abdominal surgeries and small bowel obstruction in the past. Found in ED to have small bowel obstruction. Denies chest pain, shortness of breath, headaches, dizziness. PAST MEDICAL HISTORY: HIATAL HERNIA REPAIRED VENTRAL HERNIA UMBILLICAL HERNIA RHEUMATOID ARTHRITIS ANXIETY INFLAMMATORY ARTHRITIS HYPERTENSION HYPERLIPIDEMIA GASTROESOPHAGEAL REFLUX DISEASE WITHOUT ESOPHAGITIS VARICOSE VEINS OF LEG WITH EDEMA, BILATERAL INCONTINENCE OF FECES MORBID OBESITY ALLERGIES: Please see below. REVIEW OF SYSTEMS: Negative except as per HPI. HOME MEDICATIONS: Please see below. PHYSICAL EXAMINATION: VITAL SIGNS: See below General: NAD, lying comfortably in bed HEENT: NC/AT, EOMI Lungs: CTA B/L, diminished breath sounds Heart: +S1S2, RRR Abd: soft, NT, +BS, obese LABORATORY DATA: See below. MICROBIOLOGY: Please see below. A/P: 54 yo male for abdominal pain secondary to small bowel obstruction. #SBO - follow as per surgery - NG tube - NPO for now - IV fluids #HTN - stable - continue home meds #DLP - continue home meds #DVT prophylaxis - mechanical Vital Signs Vital Signs Date Time Temp Pulse Resp B/P (MAP) Pulse Ox O2 Delivery O2 Flow Rate FiO2 04/15/20 13:51 97.2 58 19 157/97 (117) 97 Room Air Laboratory Data Labs 24H Laboratory Tests 2 04/15/20 12:51: Immature Granulocyte % (Auto) 0.6, Neutrophils (%) (Auto) 79.3H, Lymphocytes (%) (Auto) 13.4L, Monocytes (%) (Auto) 6.0, Eosinophils (%) (Auto) 0.4, Basophils (%) (Auto) 0.3, Neutrophils # (Auto) 7.1, Lymphocytes # (Auto) 1.2L, Monocytes # (Auto) 0.5, Eosinophils # (Auto) 0.0, Basophils # (Auto) 0.0, Nucleated Red Blood Cells % (auto) 0.0, Prothrombin Time 12.7, Prothromb Time International Ratio 0.93, Activated Partial Thromboplast Time 34.5, Lactic Acid Level 1.2, Total Bilirubin 1.3H, Direct Bilirubin 0.4H, Aspartate Amino Transf (AST/SGOT) 3 6, Alanine Aminotransferase (ALT/SGPT) 102H, Alkaline Phosphatase 27L, Total Creatine Kinase 186, Creatine Kinase MB 2.0, Creatine Kinase MB Relative Index 1.08, Troponin I < 0.02, Total Protein 7.2, Albumin 4.0, Albumin/Globulin Ratio 1.3, Lipase 57L 04/15/20 12:53: POC Glucose (Misc Panel) 133H, POC Sodium (Misc Panel) 139, POC Potassium (Misc Panel) 4.4, POC Chloride (Misc Panel) 100, POC Total CO2 (Misc Panel) 29.0H, POC Blood Urea Nitrogen (Misc Panel 14, POC Ionized Calcium (Misc Panel) 4.3L, POC Creatinine (Misc Panel) 0.7, POC Hematocrit (Misc Panel) 49.0 04/15/20 14:39: Coronavirus (COVID-19)(PCR) NEGATIVE, Influenza Type A (RT-PCR) NEGATIVE, Influenza Type B (RT-PCR) NEGATIVE, Respiratory Syncytial Virus (PCR) NEGATIVE CBC/BMP Laboratory Tests 04/15/20 12:51 Home Medications Scheduled Amlodipine Besylate (Amlodipine Besylate) 5 Mg Tablet, 5 MG PO DAILY Aspirin (Aspirin EC) 81 Mg Tab, 81 MG PO DAILY Chlorhexidine Gluconate (Chlorhexidine Gluconate) 473 Ml Mouthwash, 15 ML SSP BID SWISH 15ML IN THE MOUTH FOR 30 SECONDS THEN SPIT OUT TWO TIMES A DAY AFTER BRUSHING TEETH Cholecalciferol (Vitamin D3) (Vitamin D3) 125 Mcg Tablet, 125 MCG PO DAILY Esomeprazole Magnesium (Esomeprazole Magnesium) 20 Mg Capsule.dr, 20 MG PO BID Gabapentin (Gabapentin) 400 Mg Capsule, 400 MG PO QHS Simvastatin (Simvastatin) 20 Mg Tablet, 20 MG PO QHS Valsartan (Valsartan) 160 Mg Tablet, 160 MG PO DAILY Scheduled PRN Alprazolam (Xanax) 0.5 Mg Tab, 0.5 MG PO DAILY PRN for ANXIETY Allergies Coded Allergies: lisinopril (Verified Adverse Reaction, Mild, COUGH, 04/15/20) A-FIB/CHADSVASC A-FIB History Current/History of A-Fib/PAF?: No SAGAR DA SILVA MD Apr 15, 2020 16:07
[2020-04-15] MEDS: LR 1,000 ML IV SCH (16:30)
[2020-04-15] MEDS ORDERED: PANTOPRAZOLE 40MG VIAL (C9113 PER 1) IV ONE (17:00)
[2020-04-15 17:20] VITALS: BP 148/72
--- NOTE | 2020-04-15 19:39 | ECGEPIP ---
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
[2020-04-15] MEDS: SIMVASTATIN 20 MG TAB PO SCH (21:00)
[2020-04-15] MEDS: GABAPENTIN 400MG CAP PO SCH (21:00)
[2020-04-15 22:00] VITALS: BP 154/70
[2020-04-15] MEDS: CHLORHEXIDINE GLUCONATE 0.12 % 15ML UDC (PERIDEX ORAL RINSE) SSP SCH (22:45)
[2020-04-16] MEDS: LR 1,000 ML IV SCH ×2 (03:01→15:55)
--- NOTE | 2020-04-16 04:48 | CR.PDOC ---
General Surgery Consultation Date of Consultation 04/15/20 History and Physical CONSULT REPORT FOR: Dr. Harmon (hospitalist service) REASON FOR CONSULTATION: small bowel obstruction, incarcerated incisional hernia HISTORY OF PRESENT ILLNESS: Patient is a 54-year-old male, tall and morbidly obese with a multiply recurrent incisional hernia and has had numerous abdominal surgeries including bowel obstructions from his incisional hernias. Previously met him years back during one of those small bowel presentations. Last time he was in the hospital for bowel obstruction related to his hernia was back in 2016. Has remained asymptomatic since then. Continues to be morbidly obese with a BMI of 49.5. He has several hernias along the midline of his abdomen with multiple meshes that has been placed throughout the years. He presents with a o ne-day history of sudden onset crampy mid abdominal pain associated with nausea and vomiting, has had a bowel movement this morning. In the emergency room he was found to have evidence for small bowel obstruction related to bowel being caught up in the mid abdomen where he has a hernia. A nasogastric tube was then placed for bowel decompression. Since presented emergency room patient reports feeling better after being given a dose of morphine. He was subsequently admitted to the hospitalist service. I was called in to evaluate his bowel obstruction as well as incarcerated hernia. PAST MEDICAL HISTORY: 1. . PAST SURGICAL HISTORY: INCLUDES: 1. . PREVIOUS ANESTHESIA REACTIONS: ALLERGIES: Please see below. FAMILY HISTORY: . HOME MEDICATIONS: Please see below. REVIEW OF SYSTEMS: GENERAL: [Denies chills, reports weight gain, reports feeling febrile yesterday]. HEENT: [Denies blurred vision and double vision. Denies ear symptoms. Denies hoarseness]. NECK: Denies any neck pain]. CARDIOVASCULAR: [Denies chest pain and palpitations]. MUSCULOSKELETAL: [Denies arthralgias, back pain and thrombophlebitis]. SKIN: [Denies rash]. NEUROLOGIC: [Denies headache, stroke and transient ischemic attack]. PSYCHIATRIC: [Denies anxiety and depression]. ENDOCRINE: [Denies thyroid disease]. HEMATOLOGY/ONCOLOGY: [Denies bleeding or clotting disorder]. HEART: [Denies any chest pains, palpitations, paroxysmal dyspnea, orthopnea]. PULMONARY: [Denies chronic cough, dyspnea and wheezing]. GASTROINTESTINAL: [Denies rectal bleeding, family history of colon cancer, constipation, diarrhea, dysphagia, heartburn and jaundice]. GENITOURINARY: [Denies dysuria, frequency, hematuria and nocturia]. ENDOCRINE: [Denies polydipsia, polyphagia, polyuria, heat or cold intolerance]. INFECTIOUS: [Denies any recent upper respiratory tract infection, UTI, need for use of antibiotics]. NUTRITION: [Reports good appetite]. PHYSICAL EXAMINATION: VITALS SIGNS: Please see below. GENERAL APPEARANCE:[Patient seen, laying in bed, awake, alert, and oriented. Comfortable, in no acute distress]. SKIN: [Warm and moist]. HEENT: [Normocephalic, atraumatic. [place] palpebral conjunctiva, anicteric sclerae. Lips and mucosa appear moist]. NECK: [Supple, no thyromegaly. No obvious jugular venous distention]. LUNGS: [Clear to auscultation bilaterally. No wheezing appreciated]. HEART: [No chest wall abnormalities. Regular rate and rhythm with no murmurs appreciated]. ABDOMEN: Abdomen is , soft, . [No hepatosplenomegaly. No umbilical or groin herniations, nondistended. No noticeable rebound or guarding. No grimacing with palpation. No rebound tenderness. No masses appreciated]. EXTREMITIES: [Extremities have no deformities. No edema identified] ANCILLARIES: . LABORATORY DATA: Please see below. IMAGING STUDIES: . IMPRESSION AND PLAN: Small bowel obstruction related to incarcerated incisional hernia Morbid obesity Multiply recurrent incisional hernia Patient is on as saw him looks stable. No signs of threatened bowel. A nasogastric tube was then placed in a slight bloody output is noted due to the traumatic placement of nasogastric tube. At this point I would like to continue to watch him to see if he could decompress his abdomen, possibly release the bowel obstruction with decompression and if not allow us to try to perform a minimally invasive release of the bowel obstruction so long as he is not worsening or no signs of threatened bowel, strangulated bowel. Anticipate this to be a very difficult procedure given multiple surgeries, presence of multiple meshes in the abdomen. Also because of his morbid obesity, his body habitus including a very protuberant, thin-walled abdomen, recurrence rates would remain high and he is aware of this. Since the last time I saw him, he has been on CPAP for obstructive sleep apnea, otherwise reports his diabetes is well controlled. I will continue to follow him closely both with clinical exam and serial imaging/x-rays. Vital Signs Vital Signs Date Time Temp Pulse Resp B/P (MAP) Pulse Ox O2 Delivery O2 Flow Rate FiO2 04/15/20 22:00 97.9 62 20 154/70 (98) 97 Room Air I&Os I&O- Last 24 Hours up to 6 AM 04/16/20 05:59 Intake Total 800 ml Output Total 900 ml Balance -100 ml Laboratory Data Labs 24H Laboratory Tests 2 04/15/20 12:51: Immature Granulocyte % (Auto) 0.6, Neutrophils (%) (Auto) 79.3H, Lymphocytes (%) (Auto) 13.4L, Monocytes (%) (Auto) 6.0, Eosinophils (%) (Auto) 0.4, Basophils (%) (Auto) 0.3, Neutrophils # (Auto) 7.1, Lymphocytes # (Auto) 1.2L, Monocytes # (Auto) 0.5, Eosinophils # (Auto) 0.0, Basophils # (Auto) 0.0, Nucleated Red Blood Cells % (auto) 0.0, Prothrombin Time 12.7, Prothromb Time International Ratio 0.93, Activated Partial Thromboplast Time 34.5, Lactic Acid Level 1.2, Total Bilirubin 1.3H, Direct Bilirubin 0.4H, Aspartate Amino Transf (AST/SGOT) 36, Alanine Aminotransferase (ALT/SGPT) 102H, Alkaline Phosphatase 27L, Total Creatine Kinase 186, Creatine Kinase MB 2.0, Creatine Kinase MB Relative Index 1.08, Troponin I < 0.02, Total Protein 7.2, Albumin 4.0, Albumin/Globulin Ratio 1.3, Lipase 57L 04/15/20 12:53: POC Glucose (Misc Panel) 133H, POC Sodium (Misc Panel) 139, POC Potassium (Misc Panel) 4.4, POC Chloride (Misc Panel) 100, POC Total CO2 (Misc Panel) 29.0H, POC Blood Urea Nitrogen (Misc Panel 14, POC Ionized Calcium (Misc Panel) 4.3L, POC Creatinine (Misc Panel) 0.7, POC Hematocrit (Misc Panel) 49.0 04/15/20 14:39: Coronavirus (COVID-19)(PCR) NEGATIVE, Influenza Type A (RT-PCR) NEGATIVE, Influenza Type B (RT-PCR) NEGATIVE, Respiratory Syncytial Virus (PCR) NEGATIVE CBC/BMP Laboratory Tests 04/15/20 12:51 Home Medications Scheduled Amlodipine Besylate (Amlodipine Besylate) 5 Mg Tablet, 5 MG PO DAILY, (Reported) Aspirin (Aspirin EC) 81 Mg Tab, 81 MG PO DAILY, (Reported) Chlorhexidine Gluconate (Chlorhexidine Gluconate) 473 Ml Mouthwash, 15 ML SSP BID, (Reported) SWISH 15ML IN THE MOUTH FOR 30 SECONDS THEN SPIT OUT TWO TIMES A DAY AFTER BRUSHING TEETH Cholecalciferol (Vitamin D3) (Vitamin D3) 125 Mcg Tablet, 125 MCG PO DAILY, (Reported) Esomeprazole Magnesium (Esomeprazole Magnesium) 20 Mg Capsule.dr, 20 MG PO BID, (Reported) Gabapentin (Gabapentin) 400 Mg Capsule, 400 MG PO QHS, (Reported) Simvastatin (Simvastatin) 20 Mg Tablet, 20 MG PO QHS, (Reported) Valsartan (Valsartan) 160 Mg Tablet, 160 MG PO DAILY, (Reported) Scheduled PRN Alprazolam (Xanax) 0.5 Mg Tab, 0.5 MG PO DAILY PRN for ANXIETY, (Reported) Allergies Coded Allergies: lisinopril (Verified Adverse Reaction, Mild, COUGH, 04/15/20) MIKE NUNO MD Apr 16, 2020 04:48
[2020-04-16 06:00] VITALS: BP 160/90
[2020-04-16 06:16] LABS: HEMATOCRIT 43.8 % (42.0-52.0); HEMOGLOBIN 14.7 g/dl (13.5-17.5); MEAN CORPUSCULAR HEMOGLOBIN 30.9 pg (27.0-33.0); MEAN CORPUSCULAR HGB CONC 33.6 g/dl (32.0-36.5); MEAN CORPUSCULAR VOLUME 92.2 fl (80.0-96.0); PLATELET COUNT, AUTOMATED 136 10^3/uL (150-450); RED BLOOD COUNT 4.75 10^6/uL (4.30-6.10); WHITE BLOOD COUNT 5.6 10^3/uL (4.0-10.0)
[2020-04-16 06:33] LABS: ALBUMIN 3.2 GM/DL (3.2-5.2); ALT/SGPT 70 U/L (12-78); BILIRUBIN,TOTAL 1.4 MG/DL (0.2-1.0); BLOOD UREA NITROGEN 13 MG/DL (7-18); CALCIUM LEVEL 7.8 MG/DL (8.5-10.1); CARBON DIOXIDE LEVEL 27 MEQ/L (21-32); CHLORIDE LEVEL 108 MEQ/L (98-107); CREATININE FOR GFR 0.71 MG/DL (0.70-1.30); GLOMERULAR FILTRATION RATE > 60.0 (>56); GLUCOSE, FASTING 130 MG/DL (70-100); POTASSIUM SERUM 3.8 MEQ/L (3.5-5.1); SODIUM LEVEL 140 MEQ/L (136-145); TOTAL PROTEIN 6.4 GM/DL (6.4-8.2)
[2020-04-16] MEDS: VALSARTAN 80 MG TAB (DIOVAN) PO SCH (07:51)
[2020-04-16] MEDS: amLODIPine 5 MG TAB PO SCH (07:51)
[2020-04-16] MEDS: ASPIRIN 81MG ENTERIC TABLET PO SCH (07:51)
[2020-04-16] MEDS: CHLORHEXIDINE GLUCONATE 0.12 % 15ML UDC (PERIDEX ORAL RINSE) SSP SCH ×2 (07:52→21:17)
[2020-04-16 08:04] LABS: BILIRUBIN,DIRECT 0.3 MG/DL (0.0-0.2)
--- NOTE | 2020-04-16 10:19 | REP ---
INDICATION: SBO COMPARISON: None. TECHNIQUE: Upright view of the chest with supine and upright views of the abdomen and pelvis. FINDINGS: Frontal upright view of the chest demonstrates bibasilar atelectasis (left greater than right). No free air below the diaphragm to suspect pneumoperitoneum. Nasogastric tube extends below the left hemidiaphragm in satisfactory position. Supine and upright views of the abdomen and pelvis demonstrate a relatively nonspecific bowel gas pattern with mildly dilated air-filled loops of small and large bowel suggested but no definite findings to suggest obstruction or perforation. IMPRESSION: 1. Lung motley demonstrate bibasilar atelectasis. 2. Nasogastric tube extends below the left hemidiaphragm. 3. Bowel gas pattern by current radiographic evaluation is somewhat nonspecific. <Electronically signed by Lisandro Dyer > 04/16/20 1016
--- NOTE | 2020-04-16 12:04 | IPNPDOC ---
Text Note Date of Service The patient was seen on 04/16/20. NOTE General Surgery Dr Mays. Patient is a 54-year-old malewith h/o recurrent incisional hernia with multiple meshes that have been placed throughout the years and has had numerous abdominal surgeries including bowel obstructions from his incisional hernias. Patient presented on the day of admission with a one-day history of sudden onset crampy mid abdominal pain associated with nausea and vomiting, and was found to have evidence for small bowel obstruction related to bowel being caught up in the mid abdomen where he has a hernia. NG tube was placed for bowel decompress ion. This morning, the patient states his abdomen feels less distended and he has passed some gas but no BM yet. NG tube in place, currently clamped to receive medications. No nausea or vomiting. Afebrile. Rate 57, respiratory rate 18, blood pressure 160/90, saturation 99% room air. General. The patient is resting in bed, no acute distress. NG tube in place. Lungs are clear to auscultation. S1 and S2 regular rate rhythm. Abdomen protuberant, still with distention but improved compared with admission, some tenderness noted right mid to lower quadrant area. No guarding, no rebound. Extremities, no edema. 800/900, -100. NG tube 450 mL so far today. WBC 5.6, hemoglobin 14.7, platelet 136. Total bilirubin 1.4, direct bilirubin 0.3, AST 23, ALT 70, alkaline phosphatase 18. A/P Small bowel obstruction related to incarcerated incisional hernia Morbid obesity, BMI 49.5. History of recurrent incisional hernia The patient is reviewed and examined as per Dr. Mays this morning. Continue with NG tube for now. His abdomen does appear to be less distended from yesterday. We'll request abdominal x-ray to further evaluate. IVF 90cc/hr. monitor. VS,Fishbone, I+O VS, Fishbone, I+O Laboratory Tests 04/15/20 12:51 04/16/20 05:43 Vital Signs Date Time Temp Pulse Resp B/P (MAP) Pulse Ox O2 Delivery O2 Flow Rate FiO2 04/16/20 07:51 160/90 04/16/20 07:51 57 04/16/20 06:00 96.8 18 99 Room Air I&O- Last 24 Hours up to 6 AM 04/16/20 06:00 Intake Total 1880 ml Output Total 1350 ml Balance 530 ml Mar Aden Apr 16, 2020 12:04
[2020-04-16 14:00] VITALS: BP 140/82
[2020-04-16] MEDS ORDERED: MIRALAX *UNIT DOSE* 17GM PACKET PO ONE (14:05)
--- NOTE | 2020-04-16 14:06 | IPNPDOC ---
Subjective Date Seen The patient was seen on 04/16/20. Subjective Chief Complaint/HPI Subjective: Patient is seen bedside this morning. . He is not in any acute distress, resting comfortably. His NG tube that was placed placed to decompress his abdomen had greenish outputs. . She denies any abdominal pain. Objective: VITALS SIGNS: Please see below. GENERAL APPEARANCE: Morbidly obese male laying in bed, alert, and oriented. Com fortable, in no acute distress SKIN: Warm and moist HEENT: Normocephalic, atraumatic. Lips and mucosa appear moist NECK: Supple, no thyromegaly. No obvious jugular venous distention LUNGS: Clear to auscultation bilaterally HEART: No chest wall abnormalities. Regular rate and rhythm with no murmurs appreciated ABDOMEN: Protuberant Abdomen, soft, nontender, nondistended, no grimacing with palpation, no umbilical or groin herniation difficult to appreciate hepatosplenomegaly due to morbid obesity, no masses appreciated. No rebound tenderness EXTREMITIES: Trace bilateral lower extremity edema, no cyanosis, palpable, 2+ pedal pulses Assessment and plan: This is a 54-year-old morbidly obese male (BMI 49.5) presents to [facility] ER chief complaint of one day history of sudden onset, crampy mid abdominal pain associated with nausea and vomiting. In the ER salt have evidence for SBO related to incarcerated incisional hernia. Of note, patient has extensive history of multiple recurrent incisional hernias as well as numerous abdominal surgeries involving bowel obstruction from his incisional hernias. His last hospitalization for bowel obstruction related to his hernia was back in 2016 and has remained asymptomatic since then. An NG tube was placed for bowel decompression. The patient was made under the hospitalist service for further evaluation of bowel traction as well as possible incarcerated hernia. General surgery, has been consulted. #Small bowel traction secondary to incarcerated incisional hernia -NG tube in place for decompression-, no signs of worsening or threatened bowel/strangulation of bowel - Per Gen. surgery continued to decompress with NG tube - With the patient's morbid obesity and prior bowel surgeries, scarring may be difficult surgical candidate with high recurrence rates in after repair. - Nothing by mouth #Essential hypertension - Blood pressure 160/90- may be elevated secondary to pain -Continue amlodipine, valsartan, ASA #Dyslipidemia -Continue with simvastatin DVT prophylaxis: Teds/SCDs GI prophylaxis: Protonix Diet: None. Nothing by mouth Fluids: Lactated Ringer's at 90 mL per hour CODE STATUS: Full Disposition: Awaiting clinical improvement Assessment /Plan Plan/VTE VTE Prophylaxis Ordered?: Yes VS, I&O, 24H, Fishbone Vital Signs/I&O Vital Signs Date Time Temp Pulse Resp B/P (MAP) Pulse Ox O2 Delivery O2 Flow Rate FiO2 04/16/20 07:51 160/90 04/16/20 07:51 57 04/16/20 06:00 96.8 18 99 Room Air I&O- Last 24 Hours up to 6 AM 04/16/20 05:59 Intake Total 1880 ml Output Total 1350 ml Balance 530 ml Laboratory Data 24H LABS Laboratory Tests 2 04/15/20 12:51: Immature Granulocyte % (Auto) 0.6, Neutrophils (%) (Auto) 79.3H, Lymphocytes (%) (Auto) 13.4L, Monocytes (%) (Auto) 6.0, Eosinophils (%) (Auto) 0.4, Basophils (%) (Auto) 0.3, Neutrophils # (Auto) 7.1, Lymphocytes # (Auto) 1.2L, Monocytes # (Auto) 0.5, Eosinophils # (Auto) 0.0, Basophils # (Auto) 0.0, Nucleated Red Blood Cells % (auto) 0.0, Prothrombin Time 12.7, Prothromb Time International Ratio 0.93, Activated Partial Thromboplast Time 34.5, Lactic Acid Level 1.2, Total Bilirubin 1.3H, Direct Bilirubin 0.4H, Aspartate Amino Transf (AST/SGOT) 36, Alanine Aminotransferase (ALT/SGPT) 102H, Alkaline Phosphatase 27L, Total Creatine Kinase 186, Creatine Kinase MB 2.0, Creatine Kinase MB Relative Index 1.08, Troponin I < 0.02, Total Protein 7.2, Albumin 4.0, Albumin/Globulin Ratio 1.3, Lipase 57L 04/15/20 12:53: POC Glucose (Misc Panel) 133H, POC Sodium (Misc Panel) 139, POC Potassium (Misc Panel) 4.4, POC Chloride (Misc Panel) 100, POC Total CO2 (Misc Panel) 29.0H, POC Blood Urea Nitrogen (Misc Panel 14, POC Ionized Calcium (Misc Panel) 4.3L, POC Creatinine (Misc Panel) 0.7, POC Hematocrit (Misc Panel) 49.0 04/15/20 14:39: Coronavirus (COVID-19)(PCR) NEGATIVE, Influenza Type A (RT-PCR) NEGATIVE, Inf luenza Type B (RT-PCR) NEGATIVE, Respiratory Syncytial Virus (PCR) NEGATIVE 04/16/20 05:43: Nucleated Red Blood Cells % (auto) 0.0, Total Bilirubin 1.4H, Direct Bilirubin 0.3H, Aspartate Amino Transf (AST/SGOT) 23, Alanine Aminotransferase (ALT/SGPT) 70, Alkaline Phosphatase 18L, Total Protein 6.4, Albumin 3.2, Albumin/Globulin Ratio 1.0, Anion Gap 5L, Glomerular Filtration Rate > 60.0, Calcium Level 7.8L CBC/BMP Laboratory Tests 04/15/20 12:51 04/16/20 05:43 GME ATTESTATION GME ATTESTATION My faculty preceptor for this patient encounter was physically present during the encounter and was fully available. All aspects of the patient interview, examination, medical decision making process, and medical care plan development were reviewed and approved by the faculty preceptor. The faculty preceptor is aware and concurs with the plan as stated in the body of this note and will attest to such by his/her cosignature. ATTENDING NOTE Attending Note: Patient seen and examined independently. Agree with resident's note and plan of care. Regi Ryan DO Apr 16, 2020 10:54 SAGAR DA SILVA MD Apr 16, 2020 18:38
[2020-04-16] MEDS: GABAPENTIN 400MG CAP PO SCH (21:00)
[2020-04-16] MEDS: SIMVASTATIN 20 MG TAB PO SCH (21:17)
[2020-04-16 22:00] VITALS: BP 130/64
[2020-04-17] MEDS: LR 1,000 ML IV SCH ×2 (02:32→16:12)
[2020-04-17 06:00] VITALS: BP 140/79
[2020-04-17] MEDS: amLODIPine 5 MG TAB PO SCH (08:04)
[2020-04-17] MEDS: VALSARTAN 80 MG TAB (DIOVAN) PO SCH (08:04)
[2020-04-17] MEDS: CHLORHEXIDINE GLUCONATE 0.12 % 15ML UDC (PERIDEX ORAL RINSE) SSP SCH ×2 (08:05→20:26)
[2020-04-17] MEDS: ASPIRIN 81MG ENTERIC TABLET PO SCH (08:05)
[2020-04-17 08:16] LABS: BASO % 0.6 % (0.0-1.0); EOS # 0.1 10^3/uL (0.0-0.5); EOS % 2.6 % (0.0-3.0); HEMATOCRIT 43.3 % (42.0-52.0); HEMOGLOBIN 14.5 g/dl (13.5-17.5); LYMPH # 1.4 10^3/uL (1.5-5.0); LYMPH % 28.7 % (24.0-44.0); MEAN CORPUSCULAR HEMOGLOBIN 30.1 pg (27.0-33.0); MEAN CORPUSCULAR HGB CONC 33.5 g/dl (32.0-36.5); MONO # 0.4 10^3/uL (0.0-0.8); MONO % 8.1 % (2.0-8.0); NEUTROPHILS # 2.9 10^3/uL (1.5-8.5); NEUTROPHILS % 59.8 % (36.0-66.0); PLATELET COUNT, AUTOMATED 150 10^3/uL (150-450); RED BLOOD COUNT 4.81 10^6/uL (4.30-6.10); WHITE BLOOD COUNT 4.9 10^3/uL (4.0-10.0)
--- NOTE | 2020-04-17 08:35 | REP ---
INDICATION: ffup sbo COMPARISON: 04/16/2020 TECHNIQUE: Upright view of the chest with supine and upright views of the abdomen and pelvis. FINDINGS: Frontal view of the chest demonstrates nasogastric tube in satisfactory position. Scattered bibasilar atelectasis suggested. No free air below diaphragm to suspect pneumoperitoneum. Supine and upright views of the abdomen and pelvis demonstrate moderate amount of air-filled colon and no definite evidence for small bowel obstruction. No organomegaly. No significant foreign body. Musculoskeletal structures are stable. IMPRESSION: Bowel gas pattern is nonspecific but without definite evidence for small bowel obstruction. <Electronically signed by Lisandro Dyer > 04/17/20 0850
[2020-04-17 08:38] LABS: BLOOD UREA NITROGEN 13 MG/DL (7-18); CALCIUM LEVEL 8.1 MG/DL (8.5-10.1); CARBON DIOXIDE LEVEL 27 MEQ/L (21-32); CHLORIDE LEVEL 106 MEQ/L (98-107); CREATININE FOR GFR 0.67 MG/DL (0.70-1.30); GLOMERULAR FILTRATION RATE > 60.0 (>56); GLUCOSE, FASTING 103 MG/DL (70-100); MAGNESIUM LEVEL 2.2 MG/DL (1.8-2.4); POTASSIUM SERUM 3.8 MEQ/L (3.5-5.1); SODIUM LEVEL 140 MEQ/L (136-145)
[2020-04-17 08:42] LABS: ALBUMIN 3.5 GM/DL (3.2-5.2); BILIRUBIN,DIRECT 0.4 MG/DL (0.0-0.2); BILIRUBIN,TOTAL 1.3 MG/DL (0.2-1.0); TOTAL PROTEIN 6.3 GM/DL (6.4-8.2)
--- NOTE | 2020-04-17 10:40 | IPNPDOC ---
Subjective Date Seen The patient was seen on 04/17/20. Subjective Chief Complaint/HPI Subjective: Patient is seen bedside this morning. No acute events overnight reported by nursing. NG tube was clamped by general surgery this morning. He had a bowel movement after receiving MiraLAX. Pending. A abdominal upright radiograph. Will likely transition from by mouth to clear liquid diet today. Denies any abdominal pain, CP, N/V/D. Objective: VITALS SIGNS: Please see below. GENERAL APPEARANCE: Morbidly obese male laying in bed, alert, and oriented. Comfortable, in no acute distress SKIN: Warm and moist HEENT: Normocephalic, atraumatic. Lips and mucosa appear moist, NG tube in place NECK: Supple, no thyromegaly. No obvious jugular venous distention LUNGS: Clear to auscultation bilaterally HEART: No chest wall abnormalities. Regular rate and rhythm with no murmurs appreciated ABDOMEN: Protuberant Abdomen, soft, nontender, nondistended, no grimacing with palpation, no umbilical or groin herniation difficult to appreciate he patosplenomegaly due to morbid obesity, no masses appreciated. No rebound tenderness EXTREMITIES: Trace bilateral lower extremity edema, no cyanosis, palpable, 2+ pedal pulses Assessment and plan: This is a 54-year-old morbidly obese male (BMI 49.5) presents to [facility] ER chief complaint of one day history of sudden onset, crampy mid abdominal pain associated with nausea and vomiting. In the ER salt have evidence for SBO related to incarcerated incisional hernia. Of note, patient has extensive hist ory of multiple recurrent incisional hernias as well as numerous abdominal surgeries involving bowel obstruction from his incisional hernias. His last hospitalization for bowel obstruction related to his hernia was back in 2016 and has remained asymptomatic since then. An NG tube was placed for bowel decompression. The patient was made under the hospitalist service for further evaluation of bowel traction as well as possible incarcerated hernia. General surgery, has been consulted. #Possible Small bowel obstruction in the setting of an incisional hernia - Reports improvement of symptoms; denies any N/V, has had bowel movements - NG tube clamped this morning by General surgery - No signs of worsening or threatened bowel/strangulation of bowel - Bowel regimen ordered. Patient had a bowel movement - Nothing by mouth-likely transition diet to clears today - General surgery on consultation #Essential hypertension - Blood pressure 140 / 99- may be elevated secondary to pain -Continue amlodipine, valsartan, ASA #Dyslipidemia -Continue with simvastatin DVT prophylaxis: Teds/SCDs GI prophylaxis: Protonix Diet: Nothing by mouth Fluids: Lactated Ringer at 90 mL per hour CODE STATUS: Full Disposition: Awaiting clinical improvement. NG tube clamped, bowel prep in place. If patient tolerates diet will likely get discharged tomorrow. Assessment /Plan Plan/VTE VTE Prophylaxis Ordered?: Yes VS, I&O, 24H, Fishbone Vital Signs/I&O Vital Signs Date Time Temp Pulse Resp B/P (MAP) Pulse Ox O2 Delivery O2 Flow Rate FiO2 04/17/20 08:04 140/79 04/17/20 08:04 64 04/17/20 06:00 97.5 18 95 Room Air I&O- Last 24 Hours up to 6 AM 04/17/20 06:00 Intake Total 0 ml Output Total 2152 ml Balance -2152 ml Laboratory Data 24H LABS Laboratory Tests 2 04/17/20 07:19: Immature Granulocyte % (Auto) 0.2, Neutrophils (%) (Auto) 59.8, Lymphocytes (%) (Auto) 28.7, Monocytes (%) (Auto) 8.1H, Eosinophils (%) (Auto) 2.6, Basophils (%) (Auto) 0.6, Neutrophils # (Auto) 2.9, Lymphocytes # (Auto) 1.4L, Monocytes # (Auto) 0.4, Eosinophils # (Auto) 0.1, Basophils # (Auto) 0.0, Nucleated Red Blood Cells % (auto) 0.0, Anion Gap 7L, Glomerular Filtration Rate > 60.0, Calcium Level 8.1L, Magnesium Level 2.2, Total Bilirubin 1.3H, Direct Bilirubin 0.4H, Aspartate Amino Transf (AST/SGOT) 29, Alanine Aminotransferase (ALT/SGPT) 74, Alkaline Phosphatase 17L, Total Protein 6.3L, Albumin 3.5, Albumin/Globulin Ratio 1.3 CBC/BMP Laboratory Tests 04/17/20 07:19 GME ATTESTATION GME ATTESTATION My faculty preceptor for this patient encounter was physically present during the encounter and was fully available. All aspects of the patient interview, examination, medical decision making process, and medical care plan development were reviewed and approved by the faculty preceptor. The faculty preceptor is aware and concurs with the plan as stated in the body of this note and will attest to such by his/her cosignature. ATTENDING NOTE I, Solis Laureano, have independently examined this patient and performed my own physical exam, as well as reviewed the documentation and edited where necessary. I have discussed in detail with the resident / student the findings and plan of treatment as documented by the resident / student and edited their note. I agree with their findings and treatment plan and have edited their documentation. I will continue to follow the patient during this hospital stay. Regi Ryan DO Apr 17, 2020 09:23 SOLIS LAUREANO MD Apr 17, 2020 10:59
[2020-04-17 14:00] VITALS: BP 128/70
[2020-04-17] MEDS ORDERED: CHLORASEPTIC SPRAY MT PRN (14:20)
--- NOTE | 2020-04-17 16:22 | IPNPDOC ---
Text Note Date of Service The patient was seen on 04/17/20. NOTE She reports he had some loose stools last night and this morning, intermittently passing flatus. Reports a lot of the discomfort has gone away. He denies any nausea or vomiting. His nasogastric tube is not putting out much output. Vital signs stable Afebrile I/O NG tube 800 mL's (400 mL's) On examination Patient looks comfortable NG tube in place, the prior bloody drainage is all resolved looks light- tinge bilious Abdomen, very protuberant, morbidly obese. The area of the hernia above the umbilicus is soft and up. No further gross bulging at the area and nontender on palpation, no incarceration that I could feel though abdomen still looks somewhat distended. This is hard to really ascertain due to his body habitus Abdominal x-ray shows most of the area is in the colon now and no small bowel distention Impression and plan Small bowel obstruction related to incarcerated incisional hernia just above the umbilicus Resolving with nonoperative therapy. Will clamp the NG tube. I will allow him to drink some liquids and see if he tolerates this. Renal back to suction he gets nauseated. In fully resolve Discontinue the NG tube tomorrow and advance diet and follow up with me in the clinic. VS,Fito, I+O VS, Syle, I+O Laboratory Tests 04/17/20 07:19 Vital Signs Date Time Temp Pulse Resp B/P (MAP) Pulse Ox O2 Delivery O2 Flow Rate FiO2 04/17/20 14:00 97.7 60 19 128/70 (89) 95 Room Air I&O- Last 24 Hours up to 6 AM 04/17/20 06:00 Intake Total 0 ml Output Total 2152 ml Balance -2152 ml MIKE NUNO MD Apr 17, 2020 16:22
[2020-04-17] MEDS: SIMVASTATIN 20 MG TAB PO SCH (20:26)
[2020-04-17] MEDS: GABAPENTIN 400MG CAP PO SCH (20:26)
[2020-04-17 22:00] VITALS: BP 146/75
[2020-04-18] MEDS: LR 1,000 ML IV SCH ×2 (00:53→11:21)
[2020-04-18 06:00] VITALS: BP 160/85
[2020-04-18 06:31] LABS: BASO % 0.4 % (0.0-1.0); EOS # 0.1 10^3/uL (0.0-0.5); EOS % 2.5 % (0.0-3.0); HEMATOCRIT 42.3 % (42.0-52.0); HEMOGLOBIN 14.3 g/dl (13.5-17.5); LYMPH # 1.3 10^3/uL (1.5-5.0); LYMPH % 26.2 % (24.0-44.0); MEAN CORPUSCULAR HEMOGLOBIN 30.5 pg (27.0-33.0); MEAN CORPUSCULAR HGB CONC 33.8 g/dl (32.0-36.5); MEAN CORPUSCULAR VOLUME 90.2 fl (80.0-96.0); MONO # 0.4 10^3/uL (0.0-0.8); MONO % 8.4 % (2.0-8.0); NEUTROPHILS % 62.1 % (36.0-66.0); PLATELET COUNT, AUTOMATED 152 10^3/uL (150-450); RED BLOOD COUNT 4.69 10^6/uL (4.30-6.10); WHITE BLOOD COUNT 4.8 10^3/uL (4.0-10.0)
[2020-04-18 07:01] LABS: BLOOD UREA NITROGEN 17 MG/DL (7-18); CALCIUM LEVEL 8.4 MG/DL (8.5-10.1); CARBON DIOXIDE LEVEL 27 MEQ/L (21-32); CHLORIDE LEVEL 106 MEQ/L (98-107); CREATININE FOR GFR 0.74 MG/DL (0.70-1.30); GLOMERULAR FILTRATION RATE > 60.0 (>56); GLUCOSE, FASTING 95 MG/DL (70-100); POTASSIUM SERUM 3.9 MEQ/L (3.5-5.1); SODIUM LEVEL 140 MEQ/L (136-145)
[2020-04-18] MEDS: amLODIPine 5 MG TAB PO SCH (09:17)
[2020-04-18 09:18] VITALS: BP 160/85
[2020-04-18] MEDS: VALSARTAN 80 MG TAB (DIOVAN) PO SCH (09:18)
[2020-04-18] MEDS: ASPIRIN 81MG ENTERIC TABLET PO SCH (09:18)
[2020-04-18] MEDS: CHLORHEXIDINE GLUCONATE 0.12 % 15ML UDC (PERIDEX ORAL RINSE) SSP SCH (09:18)
--- NOTE | 2020-04-18 09:36 | DS.PDOC ---
Discharge Summary General Date of Admission Apr 15, 2020 at 15:47 Date of Discharge 04/18/20 Attending Physician: SOLIS JANSEN MD Specialist/Consultants Involve: MIKE MAYS MD Discharge Summary PROCEDURES PERFORMED DURING STAY: NG tube for decompression ADMITTING DIAGNOSES: SBO 2/2 to incarcerated incisional hernia Hx of Hiatal hernia, repaired. Ventral hernia. Umbilical hernia. Rheumatoid arthritis involving both wrists with negative rheumatoid factor. Rheumatoid arthritis involving the knees with negative rheumatoid factor. Anxiety. Inflammatory arthritis. Essential hypertension. Other hyperlipidemia GERD without esophagitis. Varicose veins, leg edema, bilateral. Unspecified erectile dysfunction. CROW on CPAP at a pressure of +12 Obesity, BMI 45-49.9 Small bowel traction secondary to incarcerated incisional hernia DISCHARGE DIAGNOSES: SBO 2/2 to incarcerated incisional hernia COMPLICATIONS/CHIEF COMPLAINT: Small Bowel Obstruction. HISTORY OF PRESENT ILLNESS: Patient is a 54-year-old morbidly obese male, with a multiply recurrent incisional hernia and has had numerous abdominal surgeries including bowel obstructions from his incisional hernias. Previously met him years back during one of those small bowel presentations. Last time he was in the hospital for bowel obstruction related to his hernia was back in 2016. Has remained asymptomatic since then. Continues to be morbidly obese with a BMI of 49.5. He has several hernias along the midline of his abdomen with multiple meshes that has been placed throughout the years. He presents with a one-day history of sudden onset crampy mid abdominal pain associated with nausea and vom iting, has had a bowel movement this morning. In the emergency room he was found to have evidence for small bowel obstruction related to bowel being caught up in the mid abdomen where he has a hernia. A nasogastric tube was then placed for bowel decompression. HOSPITAL COURSE:Since presented emergency room patient reports feeling better after being given a dose of morphine. He was subsequently admitted to the hospitalist service. General surgery evaluated his bowel obstruction as well as the incarcerated hernia decided to decompress with NG tube. Patient was put on nothing by mouth and started on IV fluids with lactated Ringers at 90 mL per hour. Tolerated it well and had no acute signs of strangulation during hospitalization. He was given a bowel prep and had a movement. Patient is able to be advanced on his diet. Patient is instructed to follow up with primary care within 2 weeks of hospital discharge and Gen. surgery(Dr. Mays) within 7 days of hospital discharge. Patient is advised that if his symptoms present. Again, and or worsens, to present back to the nearest ER. Follow up with general surgery within 2 weeks of hospital discharge. #Possible Small bowel obstruction in the setting of an incisional hernia -Reports some loose stools last night and this morning intermittently passing flatus -Is not reporting any more abdominal discomfort; denies nausea, vomiting -NG tube is not putting out much output; subsequently removed - at time of discharge able to tolerate a diet - f/u with gen surgery within 7 days of hospital discharge #Essential hypertension -Continue amlodipine, valsartan, ASA #Dyslipidemia -Continue with simvastatin DVT prophylaxis: Teds/SCDs GI prophylaxis: Protonix Fluids: Lactated Ringer at 90 mL per hour CODE STATUS: Full DISCHARGE MEDICATIONS: Please see below. ALLERGIES: Please see below. PHYSICAL EXAMINATION ON DISCHARGE: VITAL SIGNS: Please see below. LABORATORY DATA: Please see below. IMAGING: Abd XR 04/15/20: Findings are nonspecific. Differential diagnosis includes ileus, enterocolitis and ABD XR: . Lung motley demonstrate bibasilar atelectasis; NG extends below the left hemidiaphragm; bowel gas pattern nonspecific ABD XR 04/17/20: Bowel gas pattern is nonspecific but without definite evidence for small bowel obstruction. early/partial small bowel obstruction. Abd Pelvis CT 04/15/20 1. Small-bowel obstruction appears to be secondary to supraumbilical ventral hernia which contains dilated and efferent collapsed small bowel as well as surrounding mesenteric fat stranding. No evidence for bowel perforation. No ascites or drainable collection.. There is a 1 cm right renal hypodensity likely representing complex cyst and unchanged from prior examination ACTIVITY: As tolerated DIET: As tolerated DISPOSITION: Fair DISCHARGE INSTRUCTIONS: Follow outpatient with primary care within 2 weeks of hospital discharge. Full outpatient with general surgery (Dr. Mays) sherryhtin 7 days of discharge Return to the ER if you experience any problems DISCHARGE CONDITION: Fair TIME SPENT ON DISCHARGE: 40 minutes Vital Signs/I&Os Vital Signs Date Time Temp Pulse Resp B/P (MAP) Pulse Ox O2 Delivery O2 Flow Rate FiO2 04/18/20 06:00 97.4 57 18 160/85 (110) 95 Room Air I&O- Last 24 Hours up to 6 AM 04/18/20 06:00 Intake Total 1680 ml Output Total 2201 ml Balance -521 ml Laboratory Data Labs 24H Laboratory Tests 2 04/18/20 05:45: Immature Granulocyte % (Auto) 0.4, Neutrophils (%) (Auto) 62.1, Lymphocytes (%) (Auto) 26.2, Monocytes (%) (Auto) 8.4H, Eosinophils (%) (Auto) 2.5, Basophils (%) (Auto) 0.4, Neutrophils # (Auto) 3.0, Lymphocytes # (Auto) 1.3L, Monocytes # (Auto) 0.4, Eosinophils # (Auto) 0.1, Basophils # (Auto) 0.0, Nucleated Red Blood Cells % (auto) 0.0, Anion Gap 7L, Glomerular Filtration Rate > 60.0, Calcium Level 8.4L CBC/BMP Laboratory Tests 04/18/20 05:45 Discharge Medications Scheduled Amlodipine Besylate (Amlodipine Besylate) 5 Mg Tablet, 5 MG PO DAILY, (Reported) Aspirin (Aspirin EC) 81 Mg Tab, 81 MG PO DAILY, (Reported) Chlorhexidine Gluconate (Chlorhexidine Gluconate) 473 Ml Mouthwash, 15 ML SSP BID, (Reported) SWISH 15ML IN THE MOUTH FOR 30 SECONDS THEN SPIT OUT TWO TIMES A DAY AFTER BRUSHING TEETH Cholecalciferol (Vitamin D3) (Vitamin D3) 125 Mcg Tablet, 125 MCG PO DAILY, (Reported) Esomeprazole Magnesium (Esomeprazole Magnesium) 20 Mg Capsule.dr, 20 MG PO BID, (Reported) Gabapentin (Gabapentin) 400 Mg Capsule, 400 MG PO QHS, (Reported) Simvastatin (Simvastatin) 20 Mg Tablet, 20 MG PO QHS, (Reported) Valsartan (Valsartan) 160 Mg Tablet, 160 MG PO DAILY, (Reported) Scheduled PRN Alprazolam (Xanax) 0.5 Mg Tab, 0.5 MG PO DAILY PRN for ANXIETY, (Reported) Allergies Coded Allergies: lisinopril (Verified Adverse Reaction, Mild, COUGH, 04/15/20) GME ATTESTATION GME ATTESTATION My faculty preceptor for this patient encounter was physically present during the encounter and was fully available. All aspects of the patient interview, examination, medical decision making process, and medical care plan development were reviewed and approved by the faculty preceptor. The faculty preceptor is aware and concurs with the plan as stated in the body of this note and will attest to such by his/her cosignature. ATTENDING NOTE I, Solis Jansen, have independently examined this patient and performed my own physical exam, as well as reviewed the documentation and edited where necessary. I have discussed in detail with the resident / student the findings and plan of treatment as documented by the resident / student and edited their note. I agree with their findings and treatment plan and have edited their documentation. I will continue to follow the patient during this hospital stay. Time spent on discharge 35 minutes Regi Ryan DO Apr 18, 2020 07:34 SOLIS JANSEN MD Apr 18, 2020 10:16
--- NOTE | 2020-04-18 13:16 | IPNPDOC ---
Text Note Date of Service The patient was seen on 04/18/20. NOTE General Surgery. Dr Mays. The patient reports abdominal pain has improved. NG tube was removed this morning with plans to advance as tolerated. He denies any nausea or vomiting. Report some loose stools and passing flatus. Vital signs stable Afebrile Patient resting comfortably in bed, NAD Abdomen protuberant, obese. The area of the hernia above the umbilicus is soft, no tenderness, swelling or erythema. Impression and plan Small bowel obstruction related to incarcerated incisional hernia just above the umbilicus Resolving with nonoperative therapy. NG tube has been removed with plans to advance diet as tolerated and if the patient is tolerating can likely be discharged later today with outpatient follow-up with Dr. Mays. BMI 49.5. Complicates care. VS,Fishbone, I+O VS, Fishbone, I+O Laboratory Tests 04/18/20 05:45 Vital Signs Date Time Temp Pulse Resp B/P (MAP) Pulse Ox O2 Delivery O2 Flow Rate FiO2 04/18/20 09:18 160/85 04/18/20 09:17 57 04/18/20 06:00 97.4 18 95 Room Air I&O- Last 24 Hours up to 6 AM 04/18/20 06:00 Intake Total 1680 ml Output Total 2201 ml Balance -521 ml Mar Aden Apr 18, 2020 13:16
== END 2020-04-18 14:35 | disposition home or self-care (01) | DRG 394 ==
LOC: M ED 12:13 → M ED INP 15:47 → ENRESERV 16:38 → M MS5PR 17:15
PROVIDERS: ADMIT Internal Medicine; ATTEND Internal Medicine
DX: K43.0 Incisional hernia with obstruction, without gangrene (principal); Z68.42 Body mass index [BMI] 45.0-49.9, adult; K44.9 Diaphragmatic hernia without obstruction or gangrene; F41.9 Anxiety disorder, unspecified; E66.9 Obesity, unspecified; K21.9 Gastro-esophageal reflux disease without esophagitis; E78.5 Hyperlipidemia, unspecified; G47.33 Obstructive sleep apnea (adult) (pediatric); M06.9 Rheumatoid arthritis, unspecified; K42.9 Umbilical hernia without obstruction or gangrene; K43.9 Ventral hernia without obstruction or gangrene; I83.019 Varicose veins of right lower extremity with ulcer of unspecified site; I83.029 Varicose veins of left lower extremity with ulcer of unspecified site; Z79.899 Other long term (current) drug therapy; Z79.82 Long term (current) use of aspirin; Z88.8 Allergy status to other drugs, medicaments and biological substances; I10 Essential (primary) hypertension

== ENCOUNTER → 2020-07-16 | Outpatient (CLI) | payer OTHER ==
[~2020-07-16] MED LIST changes: +AMLO1TAB24 PO; +ASPI81TA33; +ESOM0.1C PO; +GABA-283 PO; +NATU1TAB5 PO; +PERI12LIQ SSP; +SIMV20TA22 PO; +VALS1TAB67 PO
[2020-07-16 12:57] LABS: HEPATITIS C VIRUS ABY INDEX < 0.0 INDEX (<0.8); HIV 1&2 SCREEN CENTAUR NEGATIVE (NEGATIVE)
== END ==
LOC: M LAB 11:05
PROVIDERS: ATTEND Dermatology
DX: K05.10 Chronic gingivitis, plaque induced (principal)
CPT/HCPCS: 17000; 17003; 36415; 83516; 86803; 87389; G0463

== ENCOUNTER → 2020-10-26 | Outpatient (CLI) | payer OTHER ==
[~2020-10-26] MED LIST changes: +CALC1CAP39 PO; +DOCU-153 PO
== END ==
LOC: M LABSMTC 11:12
PROVIDERS: ATTEND Anesthesiology
DX: Z01.812 Encounter for preprocedural laboratory examination (principal); Z20.822 Contact with and (suspected) exposure to COVID-19

== ENCOUNTER 2020-10-31 07:48 | Day surgery (SDC) | payer OTHER ==
[~2020-10-31] VITALS: Ht 198.1 cm; Wt 190.9 kg
[~2020-10-31 07:48] MED LIST changes: +LIDOCAINE 2% 100MG/5ML SDV (FOR ANES.) As Ordered ONE; +NS 1,000 ML IV ONE; +fentaNYL 100 MCG/2 ML INJECTION (J3010) As Ordered ONE; +propofoL 500 MG/50 ML VIAL As Ordered ONE
[2020-10-31] MEDS ORDERED: propofoL 200 MG/20 ML VIAL As Ordered ONE ×3 (10:16→11:02)
--- NOTE | 2020-10-31 10:40 | ROOR ---
Patient Name: David Koenig Procedure Date: 10/31/2020 9:47 AM Date of : 1965 Age: 54 Room: [facility] Gender: Male Note Status: Finalized Procedure: Colonoscopy Indications: Screening for colorectal malignant neoplasm Providers: Josué Mays MD Referring MD: LUZMARIA LAUREANO MD Requesting Provider: Medicines: Monitored Anesthesia Care Complications: No immediate complications. Procedure: Pre-Anesthesia Assessment: - Prior to the procedure, a History and Physical was performed, and patient medications and allergies were reviewed. The patient is competent. The risks and benefits of the procedure and the sedation options and risks were discussed with the patient. All questions were answered and informed consent was obtained. Patient identification and proposed procedure were verified by the physician, the nurse and the senior sales consultant in the endoscopy suite. Mental Status Examination: alert and oriented. Airway Examination: normal oropharyngeal airway and neck mobility. Respiratory Examination: clear to auscultation. CV Examination: normal. Prophylactic Antibiotics: The patient does not require prophylactic antibiotics. Prior Anticoagulants: The patient has taken no previous anticoagulant or antiplatelet agents except for aspirin. ASA Grade Assessment: III - A patient with severe systemic disease. After reviewing the risks and benefits, the patient was deemed in satisfactory condition to undergo the procedure. The anesthesia plan was to use monitored anesthesia care (MAC). Immediately prior to administration of medications, the patient was re-assessed for adequacy to receive sedatives. The heart rate, respiratory rate, oxygen saturations, blood pressure, adequacy of pulmonary ventilation, and response to care were monitored throughout the procedure. The physical status of the patient was re-assessed after the procedure. The Colonoscope was introduced through the anus and advanced to the hepatic flexure. The colonoscopy was technically difficult and complex due to a redundant colon and the patient's body habitus, large ventral incisional hernia, protuberant abdomen. [Solution]. The quality of the bowel preparation was good. Findings: The perianal and digital rectal examinations were normal. A 4 mm polyp was found in the transverse colon. The polyp was sessile. The polyp was removed with a cold snare. Resection and retrieval were complete. Estimated blood loss was minimal. A 4 mm polyp was found in the sigmoid colon. The polyp was sessile. The polyp was removed with a cold snare. Resection and retrieval were complete. Estimated blood loss was minimal. I was able to maneuver and visualize top of ileocecal valve but not able to see the cecum at all, unable to progress forward. Colon examined from hepatic flexure to rectum adequately. The retroflexed view of the distal rectum and anal verge was normal and showed no anal or rectal abnormalities. Impression: - One 4 mm polyp in the transverse colon, removed with a cold snare. Resected and retrieved. - One 4 mm polyp in the sigmoid colon, removed with a cold snare. Resected and retrieved. - The distal rectum and anal verge are normal on retroflexion view. Recommendation: - Discharge patient to home (ambulatory). - Repeat colonoscopy in 1 year because the examination was incomplete. Procedure Code(s): --- Professional --- 82238, 52, Colonoscopy, flexible; with removal of tumor(s), polyp(s), or other lesion(s) by snare technique Diagnosis Code(s): --- Professional --- Z12.11, Encounter for screening for malignant neoplasm of colon K63.5, Polyp of colon CPT copyright 2019 [employer]. All rights reserved. The codes documented in this report are preliminary and upon direct support worker review may be revised to meet current compliance requirements. Josué Mays MD Josué Mays MD 10/31/2020 10:40:14 AM Electronically signed by Josué Mays MD Number of Addenda: 0 Note Initiated On: 10/31/2020 9:47 AM Estimated Blood Loss: Estimated blood loss was minimal.
[2020-10-31 11:00] VITALS: BP 177/82
== END 2020-10-31 11:15 | disposition home or self-care (01) ==
LOC: M OPP 07:48
PROVIDERS: ATTEND Surgery
DX: Z12.11 Encounter for screening for malignant neoplasm of colon (principal); K63.5 Polyp of colon; Q43.8 Other specified congenital malformations of intestine; K43.9 Ventral hernia without obstruction or gangrene; E66.01 Morbid (severe) obesity due to excess calories; E11.9 Type 2 diabetes mellitus without complications; Z79.82 Long term (current) use of aspirin; Z79.899 Other long term (current) drug therapy; Z88.8 Allergy status to other drugs, medicaments and biological substances; Z87.891 Personal history of nicotine dependence

== ENCOUNTER → 2021-03-02 | Outpatient (CLI) | payer OTHER ==
[~2021-03-02] MED LIST changes: +B-12100010 PO; +CALCCAP4 PO; -LIDOCAINE 2% 100MG/5ML SDV (FOR ANES.) As Ordered ONE; -NS 1,000 ML IV ONE; -fentaNYL 100 MCG/2 ML INJECTION (J3010) As Ordered ONE; -propofoL 500 MG/50 ML VIAL As Ordered ONE
== END ==
LOC: M LABSMTC 10:40
PROVIDERS: ATTEND Anesthesiology
DX: Z01.812 Encounter for preprocedural laboratory examination (principal); Z11.52 Encounter for screening for COVID-19

== ENCOUNTER 2021-03-07 08:01 | Day surgery (SDC) | payer OTHER ==
[~2021-03-07] VITALS: Ht 198.1 cm; Wt 191.4 kg
[~2021-03-07 08:01] MED LIST changes: +GENTAMICIN 100 MG in IV 1 EA IV ONE; +LR 1,000 ML IV ONE
[2021-03-07] MEDS ORDERED: CETACAINE SPRAY 5GM As Ordered ONE (08:30)
[2021-03-07] MEDS ORDERED: ACETAMINOPHEN 1000MG 100ML IV BTL (OFIRMEV) (J0131 PER 10MG) As Ordered ONE (09:16)
[2021-03-07] MEDS ORDERED: ROCURONIUM BROMIDE 50 MG/5 ML VIAL As Ordered ONE (09:16)
[2021-03-07] MEDS ORDERED: fentaNYL 100 MCG/2 ML INJECTION As Ordered ONE (09:16)
[2021-03-07] MEDS ORDERED: ONDANSETRON 4MG/2ML VIAL As Ordered ONE (09:16)
[2021-03-07] MEDS ORDERED: LIDOCAINE 2% 100MG/5ML SDV (FOR ANES.) As Ordered ONE (09:16)
[2021-03-07] MEDS ORDERED: SUGAMMADEX SODIUM 500 MG/5 ML VIAL (BRIDION) As Ordered ONE (09:16)
[2021-03-07] MEDS ORDERED: propofoL 200 MG/20 ML VIAL As Ordered ONE (09:16)
[2021-03-07] MEDS ORDERED: MIDAZOLAM INJ 2MG/2ML VIAL (J2250 PER 1MG) As Ordered ONE (09:16)
[2021-03-07] MEDS ORDERED: dexameTHASONE 4 MG/ML 1ML VIAL (J1100 PER 1MG) As Ordered ONE (09:16)
[2021-03-07] MEDS ORDERED: LR 1,000 ML IV SCH ×2 (09:35→09:40)
[2021-03-07] MEDS ORDERED: ONDANSETRON 4MG/2ML VIAL IV PRN (09:35)
[2021-03-07 10:11] VITALS: BP 143/77
== END 2021-03-07 10:46 | disposition home or self-care (01) ==
LOC: M SDC 08:01
PROVIDERS: ATTEND Otolaryngology
DX: J38.3 Other diseases of vocal cords (principal); I10 Essential (primary) hypertension; E11.42 Type 2 diabetes mellitus with diabetic polyneuropathy; K21.9 Gastro-esophageal reflux disease without esophagitis; E78.5 Hyperlipidemia, unspecified; F41.9 Anxiety disorder, unspecified; E55.9 Vitamin D deficiency, unspecified; E66.01 Morbid (severe) obesity due to excess calories; Z68.42 Body mass index [BMI] 45.0-49.9, adult; M19.90 Unspecified osteoarthritis, unspecified site; G47.30 Sleep apnea, unspecified; R06.83 Snoring; R51.9 Headache, unspecified; Z88.8 Allergy status to other drugs, medicaments and biological substances; Z79.899 Other long term (current) drug therapy; Z79.82 Long term (current) use of aspirin
CPT/HCPCS: 31535; 88305; J0131; J1100; J2250; J2405; J3010

== ENCOUNTER → 2023-04-01 | Outpatient (CLI) | payer OTHER ==
[~2023-04-01] MED LIST changes: -DOCU-153 PO; -GABA-283 PO; +GABA-284 PO; -GENTAMICIN 100 MG in IV 1 EA IV ONE; -LR 1,000 ML IV ONE; +SIMV-253 PO; +STOO100C30 PO; -ZOCO20TA PO
== END ==
LOC: M SLEEP 20:00
PROVIDERS: ATTEND Internal Medicine
DX: G47.33 Obstructive sleep apnea (adult) (pediatric) (principal)